=== PATIENT | male | born 1955 | race Caucasian/White ===

== ENCOUNTER 2018-09-24 22:45 | Emergency (ER) | payer MEDICAID ==
[2018-09-24] MEDS ORDERED: NS 1,000 ML IV ONE (22:50)
[2018-09-24 23:12] LABS: PLATELET COUNT 215 10^3/uL (150-400)
--- NOTE | 2018-09-25 02:17 | EDPHY ---
H & P Stated Complaint: hypotension Time Seen by Provider: 09/24/18 22:47 HPI/ROS: HPI The patient presents with an episode of ALOC, brought in by ambulance. The patient has type 1 diabetes in uses insulin. He was attending a music concert [employer]. He had a late lunch and did not eat dinner. He used Lantus 25 units. He had 1 and half beers to drink and began to feel unwell. He says that he felt sweaty and felt his vision change, became blurry. He drank 2 cans of Coca- Cola. He had worsening dizziness after this. His friend called 911., paramedics found him lying on the ground, he was responsive though diaphoretic with a blood pressure of 63/35. His blood glucose was 130. He was incontinent of urine. He was given a 400 cc bolus of normal saline. He said during the day today his blood glucose levels were 150 and 186. He takes Lantus 25 mg twice daily and uses a Humalog sliding scale. He gave himself about 3 units of Humalog in the afternoon today. He has had previous episodes of hypoglycemia and this feels similar. REVIEW OF SYSTEMS 10 systems were reviewed and negative with the exception of the elements mentioned in the history of present illness. PMHx: Type 1 diabetes on insulin, hypertension, hyperlipidemia, takes lisinopril and Lipitor Soc Hx: Very occasional alcohol, lives in [place] PHYSICAL General Appearance: Alert, no distress Eyes: Pupils equal and round no pallor or injection ENT, Mouth: Mucous membranes moist Respiratory: There are no retractions, lungs are clear to auscultation Cardiovascular: Regular rate and rhythm Gastrointestinal: Abdomen is soft and non-tender, no masses, bowel sounds normal Neurological: A&O, moves all extremities Skin: Warm and dry, no rashes Musculoskeletal: Neck is supple non tender Extremities: symmetrical, full range of motion Psychiatric: Patient is oriented X 3, there is no agitation Source: Patient, EMS Exam Limitations: No limitations - Personal History Current Tetanus/Diphtheria Vaccine: Yes Tetanus Vaccine Date: <10years - Medical/Surgical History Hx Asthma: No Hx Chronic Respiratory Disease: No Hx Diabetes: Yes Hx Cardiac Disease: No Hx Renal Disease: No Hx Cirrhosis: No Hx Alcoholism: No Hx HIV/AIDS: No Hx Splenectomy or Spleen Trauma: No Other PMH: DM, HTN, high cholesterol, - Social History Smoking Status: Former smoker Constitutional: Initial Vital Signs Temperature (C) 36.4 C 09/24/18 22:49 Heart Rate 75 09/24/18 22:49 Respiratory Rate 16 09/24/18 22:49 Blood Pressure 122/68 H 09/24/18 22:49 O2 Sat (%) 95 09/24/18 22:49 O2 Delivery Mode Room Air Allergies/Adverse Reactions: No Known Allergies Allergy (Unverified 09/24/18 22:51) Home Medications: Medication Instructions Recorded Humalog 09/24/18 Lantus 09/24/18 Lipitor 09/24/18 Lisinopril 09/24/18 Medical Decision Making Differential Diagnosis: 63-year-old man with type 1 diabetes on insulin, hypertension, hyperlipidemia presents brought in by ambulance for an episode of ALOC associated with dizziness and diaphoresis. He did not have any loss of consciousness. Paramedics found him with initial blood pressure of 63/35, glucose was 130 after drinking 2 cans of Coke. His blood pressure gradually improved in route and he was given a small fluid bolus. Here, his blood pressure is normal at 120/80. Heart rate is normal. He is not hypothermic and does not have a fever. Glucose here is normal. In the emergency department, basic labs were checked and were all unremarkable. He was given a fluid bolus. He remained with stable vital signs throughout his stay here. Repeat glucose check was normal. He was able to walk with a steady gait and had no ongoing complaints. I suspect because of the change in his routine tonight, not eating dinner, drinking alcohol, taking his Lantus early, he developed hypoglycemia and because of this developed hypotension. I have considered sepsis, however he does not have any fever or signs of infection. I do not think that he had a seizure given no loss of consciousness, tongue biting, several witnesses report no seizure. He could have had presyncopal event. He likely prevented any more serious hypoglycemia by drinking sugary beverage. He feels comfortable being discharged home. I have advised him to avoid insulin this morning. He is happy with this plan. - Data Points Laboratory Results: Laboratory Results 09/24/18 23:05 09/24/18 23:05 09/25/18 09/24/18 09/24/18 02:10 23:20 23:05 WBC RBC Hgb Hct MCV MCH MCHC RDW Plt Count MPV Neut % (Auto) Lymph % (Auto) [place] % (Auto) Eos % (Auto) Baso % (Auto) Nucleat RBC Rel Count Absolute Neuts (auto) Absolute Lymphs (auto) Absolute Monos (auto) Absolute Eos (auto) Absolute Basos (auto) Absolute Nucleated RBC Immature Gran % Immature Gran # Sodium 142 mEq/L mEq/L (135-145) Potassium 4.1 mEq/L mEq/L (3.3-5.0) Chloride 108 mEq/L mEq/L (97-110) Carbon Dioxide 25 mEq/l mEq/l (22-31) Anion Gap 9 mEq/L mEq/L (6-14) BUN 14 mg/dL mg/dL (7-23) Creatinine 1.2 mg/dL mg/dL (0.7-1.3) Estimated GFR > 60 Glucose 115 mg/dL H mg/dL (70-100) POC Glucose 136 mg/dL H mg/dL (70-100) Calcium 9.2 mg/dL mg/dL (8.5-10.4) Total Bilirubin 0.5 mg/dL mg/dL (0.1-1.4) AST 42 IU/L IU/L (17-59) ALT 45 IU/L IU/L (21-72) Alkaline Phosphatase 72 IU/L IU/L (38-126) Total Protein 7.1 g/dL g/dL (6.3-8.2) Albumin 4.5 g/dL g/dL (3.5-5.0) Urine Color YELLOW Urine Appearance HAZY Urine pH 5.0 (5.0-7.5) Ur Specific [place] 1.004 (1.002-1.030) Urine Protein NEGATIVE (NEGATIVE) Urine Ketones NEGATIVE (NEGATIVE) Urine Blood NEGATIVE (NEGATIVE) Urine Nitrate NEGATIVE (NEGATIVE) Urine Bilirubin NEGATIVE (NEGATIVE) Urine Urobilinogen NEGATIVE EU EU (0.2-1.0) Ur Leukocyte Esterase NEGATIVE (NEGATIVE) Urine Glucose NEGATIVE (NEGATIVE) Ethyl Alcohol 34 mg/dL H mg/dL (0-10) 09/24/18 23:05 WBC 12.27 10^3/uL H 10^3/uL (3.80-9.50) RBC 4.43 10^6/uL 10^6/uL (4.40-6.38) Hgb 13.8 g/dL g/dL (13.7-17.5) Hct 41.2 % % (40.0-51.0) MCV 93.0 fL fL (81.5-99.8) MCH 31.2 pg pg (27.9-34.1) MCHC 33.5 g/dL g/dL (32.4-36.7) RDW 12.2 % % (11.5-15.2) Plt Count 215 10^3/uL 10^3/uL (150-400) MPV 11.3 fL fL (8.7-11.7) Neut % (Auto) 65.5 % % (39.3-74.2) Lymph % (Auto) 23.1 % % (15.0-45.0) Hyde % (Auto) 8.0 % % (4.5-13.0) Eos % (Auto) 1.9 % % (0.6-7.6) Baso % (Auto) 1.0 % % (0.3-1.7) Nucleat RBC Rel Count 0.0 % % (0.0-0.2) Absolute Neuts (auto) 8.05 10^3/uL H 10^3/uL (1.70-6.50) Absolute Lymphs (auto) 2.83 10^3/uL 10^3/uL (1.00-3.00) Absolute Monos (auto) 0.98 10^3/uL H 10^3/uL (0.30-0.80) Absolute Eos (auto) 0.23 10^3/uL 10^3/uL (0.03-0.40) Absolute Basos (auto) 0.12 10^3/uL H 10^3/uL (0.02-0.10) Absolute Nucleated RBC 0.00 10^3/uL 10^3/uL (0-0.01) Immature Gran % 0.5 % % (0.0-1.1) Immature Gran # 0.06 10^3/uL 10^3/uL (0.00-0.10) Sodium Potassium Chloride Carbon Dioxide Anion Gap BUN Creatinine Estimated GFR Glucose POC Glucose Calcium Total Bilirubin AST ALT Alkaline Phosphatase Total Protein Albumin Urine Color Urine Appearance Urine pH Ur Specific [place] Urine Protein Urine Ketones Urine Blood Urine Nitrate Urine Bilirubin Urine Urobilinogen Ur Leukocyte Esterase Urine Glucose Ethyl Alcohol Medications Given: Discontinued Medications Sodium Chloride (Ns) 1,000 mls @ 0 mls/hr IV EDNOW ONE; Wide Open PRN Reason: Protocol Stop: 09/24/18 22:51 Last Admin: 09/24/18 23:08 Dose: 1,000 mls Point of Care Test Results: Chemistry 09/25/18 02:10 POC Glucose 136 mg/dL H mg/dL (70-100) Departure - Departure Disposition: Home, Routine, Self-Care Clinical Impression: Hypoglycemia due to type 1 diabetes mellitus, Dizziness Hypotension Qualifiers: Hypotension type: unspecified hypotension type Qualified Code(s): I95.9 - Hypotension, unspecified Condition: Good Instructions: Hypoglycemia in a Person with Diabetes (ED) Additional Instructions: Please avoid taking your Lantus and Humalog this morning. You can resume your insulin later today. Please take it easy for the rest of the day today. Please return to the emergency department if worse in any way. Referrals: KARL RAJPUT [Other] - As per Instructions
[2018-09-25 02:29] VITALS: BP 124/72
--- NOTE | 2018-09-25 06:16 | CPEKG ---
Test Reason : OPEN Blood Pressure : / mmHG Vent. Rate : 071 BPM Atrial Rate : 071 BPM P-R Int : 174 ms QRS Dur : 097 ms QT Int : 406 ms P-R-T Axes : 080 068 061 degrees QTc Int : 442 ms Sinus rhythm Confirmed by Mindy Fairbanks ([id number]) on 09/25/2018 6:16:20 AM Referred By: Confirmed By:Mindy Fairbanks
== END 2018-09-25 02:28 | disposition home or self-care (01) ==
DX: E10.649 Type 1 diabetes mellitus with hypoglycemia without coma (principal); I95.9 Hypotension, unspecified; E86.9 Volume depletion, unspecified; Z79.4 Long term (current) use of insulin; Z79.01 Long term (current) use of anticoagulants
CPT/HCPCS: G0480